=== PATIENT | female | born 1970 | race Caucasian/White ===

== ENCOUNTER 2018-02-16 06:45 | Day surgery (SDC) | payer OTHER ==
[2018-02-16] MEDS ORDERED: MIDAZOLAM 1 MG/ML 2 ML INJ ×2 (09:58)
[2018-02-16] MEDS ORDERED: FENTAnyl 50 MCG/ML VIAL (09:59)
== END 2018-02-16 15:45 | disposition home or self-care (01) ==
LOC: GIL 06:45
DX: K92.1 Melena (principal); K64.8 Other hemorrhoids
CPT/HCPCS: 45378